=== PATIENT | male | born 1980 | race Caucasian/White ===

== ENCOUNTER 2016-08-04 09:23 | Inpatient (IN) | payer BC, OTHER ==
[~2016-08-04] VITALS: Ht 180.3 cm; Wt 90.7 kg
[2016-08-04 09:24] VITALS: BP 155/93; PULSE 92; RESP 14; TEMP 98.1; O2SAT 98
[2016-08-04] MEDS ORDERED: AMLO5TAB2 PO (09:50)
[2016-08-04] MEDS ORDERED: FAMO1TAB37 PO (09:50)
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
[2016-08-04 10:50] LABS: AUTOMATED NEUTROPHIL # 5.2 TH/MM3 (1.8-7.7); BASOPHIL # 0.1 TH/MM3 (0-0.2); BASOPHIL % 0.8 % (0.0-2.0); EOSINOPHIL # 0.1 TH/MM3 (0-0.4); EOSINOPHIL % 1.9 % (0.0-4.0); HEMATOCRIT 46.4 % (39.0-51.0); HEMO FLAGS DIFF FINAL; LYMPH % 13.6 % (9.0-44.0); MEAN CELL VOLUME 83.3 FL (80.0-100.0); MEAN CORPUSCULAR HEMOGLOBIN 28.6 PG (27.0-34.0); MEAN CORPUSCULAR HGB CONC 34.4 % (32.0-36.0); MONO % 12.7 % (0.0-8.0); PLATELET COUNT 295 TH/MM3 (150-450); RED BLOOD COUNT 5.57 MIL/MM3 (4.50-5.90); RED CELL DISTRIBUTION WIDTH 13.6 % (11.6-17.2); WHITE BLOOD COUNT 7.3 TH/MM3 (4.0-11.0)
[2016-08-04 11:06] LABS: ANION GAP 6 MEQ/L (5-15)
[2016-08-04 11:06] LABS: BLOOD, URINE NEG (NEG); COMMENT (UR) CULT NOT INDICATED; CULTURE IF INDICATED CULT NOT INDICATED; GLUCOSE,URINE NEG (NEG); KETONE, URINE NEG (NEG); NITRITE,URINE NEG (NEG); PH, URINE 6.5 (5.0-8.5); URINE COLOR YELLOW (YELLW/STRAW)
[2016-08-04 11:08] LABS: ALKALINE PHOSPHATASE 99 U/L (45-117); ALT (GPT) 53 U/L (12-78); AST (GOT) 20 U/L (15-37); BICARBONATE 28.3 MEQ/L (21.0-32.0); BLOOD UREA NITROGEN 12 MG/DL (7-18); CHLORIDE 103 MEQ/L (98-107); CREATINE KINASE 145 U/L (39-308); GLOMERULAR FILTRATION RATE 81 ML/MIN (>89); SODIUM (NA) 137 MEQ/L (136-145); TOTAL BILIRUBIN ADULT 1.1 MG/DL (0.2-1.0)
[2016-08-04 11:10] LABS: ACETAMINOPHEN LESS THAN 2.0 MCG/ML (10.0-30.0)
[2016-08-04 11:12] LABS: AMPHETAMINE, URINE NEG (NEG); BARBITURATES, URINE NEG (NEG); COCAINE, URINE NEG (NEG)
--- NOTE | 2016-08-04 11:55 | RADRPT ---
EXAM DATE/TIME: 08/04/2016 10:58 [facility] COMPARISON: No previous studies available for comparison. INDICATIONS : Altered mental status, headache RADIATION DOSE: 40.86 CTDIvol (mGy) MEDICAL HISTORY : Hypertension. SURGICAL HISTORY : None. ENCOUNTER: Initial ACUITY: 4 - 6 days PAIN SCALE: 5/10 LOCATION: cranial TECHNIQUE: Multiple contiguous axial images were obtained of the head. Using automated exposure control and adj ustment of the mA and/or kV according to patient size, radiation dose was kept as low as reasonably a chievable to obtain optimal diagnostic quality images. FINDINGS: CEREBRUM: The ventricles are normal for age. No evidence of midline shift, mass lesion, hemorrhage or acute in farction. No extra-axial fluid collections are seen. POSTERIOR FOSSA: The cerebellum and brainstem are intact. The 4th ventricle is midline. The cerebellopontine angle i s unremarkable. EXTRACRANIAL: The visualized portion of the orbits is intact. SKULL: The calvaria is intact. No evidence of skull fracture. CONCLUSION: Normal examination. Trenton Gaxiola MD on August 04, 2016 at 11:53 Board Certified Radiologist. This report was verified electronically.
[2016-08-04 12:30] VITALS: BP 161/96; PULSE 84; RESP 18; O2SAT 99
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
[2016-08-04] MEDS ORDERED: MAGNESIUM HYDROXIDE SUSP 30 ML CUP PO PRN (18:00)
[2016-08-04] MEDS ORDERED: ACETAMINOPHEN 325 MG TAB PO PRN (18:00)
[2016-08-04 19:00] VITALS: BP 165/108; PULSE 88; RESP 19; TEMP 98.1; O2SAT 96
[2016-08-04] MEDS ORDERED: traZODone HCL 100 MG TAB PO PRN (20:15)
[2016-08-04] MEDS ORDERED: OLANZapine 10 MG TAB PO ONE (20:15)
[2016-08-04] MEDS ORDERED: OLANZapine IM 10 MG VIAL IM ONE (20:15)
[2016-08-04] MEDS ORDERED: LORazepam 2 MG/ML VIAL IM ONE (22:30)
[2016-08-04] MEDS ORDERED: LORazepam 2 MG TAB PO ONE (22:30)
[2016-08-05 06:02] VITALS: BP 133/75; PULSE 78; RESP 18; TEMP 97.5; O2SAT 97
[2016-08-05 07:24] LABS: ANION GAP 8 MEQ/L (5-15); BLOOD UREA NITROGEN 12 MG/DL (7-18); CHLORIDE 100 MEQ/L (98-107); GLOMERULAR FILTRATION RATE 69 ML/MIN (>89); HDL CHOLESTEROL 38.2 MG/DL (40.0-60.0); LDL CHOLESTEROL 124 MG/DL (0-99); POTASSIUM 3.8 MEQ/L (3.5-5.1); SODIUM (NA) 137 MEQ/L (136-145)
[2016-08-05] MEDS ORDERED: REMOVE OLD NICODERM (NICOTINE) PATCH TD SCH (09:00)
[2016-08-05] MEDS ORDERED: NICOTINE 21 MG/24 HR PATCH T-DERMAL SCH (09:00)
[2016-08-05] MEDS ORDERED: clonazePAM 0.5 MG TAB PO PRN (10:30)
[2016-08-05] MEDS: VENLAFAXINE HCL XR 37.5 MG CAP PO SCH (11:32)
[2016-08-05] MEDS: clonazePAM 0.5 MG TAB PO SCH ×2 (11:33→20:31)
--- NOTE | 2016-08-05 12:27 | MH ---
cc: BOBY TRAN MD DATE OF ADMISSION: 08/04/2016 ADMISSION DIAGNOSES 1. Other anxiety disorder, F41.3. 2. Cannabis abuse, F12.10. LEGAL STATUS The patient is capacitated to consent for voluntary psychiatric admission and also for medications. HISTORY OF PRESENT ILLNESS Mr. Mix is a 35-year-old male with no reported past psychiatric history, who presented to the ED with complaints of racing thoughts and feeling like he was going crazy. The patient was evaluated by the psychiatric nurse practitioner who felt that he would benefit from inpatient psychiatric admission as he became somewhat agitated when it was suggested to him that his problems could be managed on an outpatient basis. He did require some medication with Zyprexa and Ativan in the ED for agitation. Reviewing the electronic medical record, I see no prior psychiatric contact within our system. The patient seen and examined. Chart reviewed. Case was discussed with nurse on the inpatient psychiatric unit. On my examination today, the patient reports that he has had trouble with anxiety stretching all the way back to childhood or adolescence. He says "it's never been this bad before." He says that for the last month or two he has been feeling increasingly irritable and feels like this irritability is building up inside. He says that he has occasional panic attacks. He says that he has negative ruminations in his head that play out like a loop. He says that this sensation is constant and is wearing on his mood. He denies any associated compulsions. His sleep is not disturbed. There is no evidence of any mood instability presently, nor does the patient give a history of hypomanic or manic episodes. He denies any audiovisual hallucinations, and I cannot elicit any delusional beliefs. He does not describe any real depressive symptoms per se. This chiefly seems to be an anxiety problem. The remainder of the psychiatric ROS is negative. PAST PSYCHIATRIC HISTORY The patient denies a history of psychiatric diagnosis. He denies a history of inpatient or outpatient psychiatric treatment. He denies a history of suicide attempts. FAMILY HISTORY The patient denies family history of serious mental illness or suicide. The patient does report that his mother smokes cannabis. CHEMICAL DEPENDENCY HISTORY The patient reports that he smokes cannabis on weekends and at parties. He also drinks perhaps three 12 ounce beers daily. He denies a history of DUIs, consequences or withdrawal. SOCIAL HISTORY The patient denies any history of abuse. He says that he is high school educated and subsequently went to technical school. 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 He has been 10 years and has a son and daughter. He denies any or legal history. He is a [employer]. He does keep a 22 rifle and a revolver at home. PAST MEDICAL HISTORY Chart shows a history hypertension, but the patient denies. REVIEW OF SYSTEMS No reported headache, vision or hearing changes, chest pain, shortness of breath, bowel or bladder issues. ALLERGIES No reported allergies. PHYSICAL EXAMINATION VITAL SIGNS: Temperature is 97.5 Fahrenheit, pulse is 78, respirations 18, blood pressure 133/75, pulse oximetry 97% on room air. The physical examination was completed in the emergency room by the ER staff and the patient was medically cleared. On my examination today I find a well-nourished, well-developed male, in no acute physical distress. No abnormal motor movements noted. LABS REVIEWED CBC is unremarkable. CMP is significant only for decreased GFR and mildly elevated total bilirubin. Lipid panel reviewed. Hemoglobin A1c is pending. Toxicology is positive for cannabinoids and alcohol level was undetectable. Urinalysis was bland. Head imaging was read as normal. MENTAL STATUS EXAMINATION The patient is in hospital gown. He is well-groomed. He is awake, alert and oriented x3. No evidence of delirium. No abnormal motor movements noted. Speech is within normal limits for rate, tone and volume. Language and fund of knowledge seem adequate and appropriate for age. Mood is "worn out." Affect is fairly full and reactive. There is definitely an anxious quality to his affect, however. Thought process linear. No loosening of associations. No evident delusions. Denies audiovisual hallucinations. Denies suicidal or homicidal ideation. Insight and judgment are fair. ASSESSMENT/PLAN This is a 35-year-old male with no reported past psychiatric history, who presented to the ED with psychiatric complaints. The patient is presently admitted to the inpatient psychiatric unit after having been screened by the nurse practitioner in the ED. On my examination today, the patient describes intermittent severe irritability and anxiety without associated mood symptoms. I am less suspicious of a primary affective disorder such as of bipolar disorder and much more suspicious of an anxiety disorder with primarily irritable features. 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 I think the patient would do well with treatment focused on his anxiety both pharmacologically on an inpatient basis and psychotherapeutic on discharge. At the patient's specific request, and with his permission, I have discussed the case with his over the phone, and she is in agreement with this plan as well. The patient requires psychiatric admission at this time for stabilization. Admit inpatient. Voluntary status. I will recheck a BMP in the morning to ensure that his GFR improves. I will encourage hydration. I will start the patient for his anxiety on Effexor XR 37.5 mg daily with plans to titrate. I will also initiate Klonopin 0.5 mg twice daily with an additional 0.5 mg twice daily as needed for breakthrough anxiety. I have discussed the risks and benefits of both these medications at length with the patient and also highlighted the risk for dependence on the Klonopin. Trazodone as needed for sleep. Vitals every shift. Counselor to see. Disposition planning. ESTIMATED LENGTH OF STAY: 3-5 days. Boby RUST /11:35 AM /12:05 PM [facility]
[2016-08-05 15:41] LABS: HEMOGLOBIN A1a 1.1 %; HEMOGLOBIN A1b 1.5 %; HEMOGLOBIN Ao 86.2 %; HEMOGLOBIN LA1C 1.8 %; HEMOGLOBIN P3 3.5 %
[2016-08-05 20:12] VITALS: BP 142/81; PULSE 77; RESP 18; TEMP 97.8; O2SAT 99
[2016-08-05] MEDS: ALUMINUM/MAGNESIUM/SIMETH 30 ML CUP PO PRN (20:31)
[2016-08-06 05:56] VITALS: BP 131/77; PULSE 65; RESP 16; TEMP 97.9; O2SAT 98
[2016-08-06 07:39] LABS: BICARBONATE 31.2 MEQ/L (21.0-32.0); POTASSIUM 3.8 MEQ/L (3.5-5.1)
[2016-08-06] MEDS: clonazePAM 0.5 MG TAB PO SCH ×2 (09:49→21:07)
[2016-08-06] MEDS: VENLAFAXINE HCL XR 37.5 MG CAP PO SCH (09:49)
--- NOTE | 2016-08-06 11:30 | HHI.PYPN ---
Subjective Remarks Patient seen and examined with counselor. Chart reviewed. Case discussed with nursing staff. On my examination today, the patient feels somewhat less anxious today. He says "I can think normal thoughts again." No SI or HI voiced. No ongoing psychotic symptoms. Denies side effects from medications. Review of Systems Other Complains of acid reflux; says he takes Pepcid outside of the hospital. No other physical complaints. Objective Alert: Yes [place]: Person (O x 3) Mood: Anxious (somewhat less) Affect: Blunted Memory Intact: Comment (intact on clinical exam) Hallucinations: Other (no AVH) Delusions: No Delusion Type: Other (no delusional material) Suicidal: Ideation (no SI) Homicidal: Ideation (no HI) Insight/Judgement Fair Remarks No abnormal motor movements noted. Thought processes fairly linear. Speech within normal limits for rate, tone and volume. Labs Test 08/06/16 06:01 Sodium Level 140 MEQ/L Potassium Level 3.8 MEQ/L Chloride Level 102 MEQ/L Carbon Dioxide Level 31.2 MEQ/L Anion Gap 7 MEQ/L Blood Urea Nitrogen 13 MG/DL Creatinine 1.01 MG/DL Estimat Glomerular Filtration 84 ML/MIN Rate Random Glucose 88 MG/DL Calcium Level 8.9 MG/DL Labs reviewed. GFR improved. Vitals/IOs Vital Signs Date Time Temp Pulse Resp B/P Pulse Ox O2 Delivery O2 Flow Rate FiO2 08/06/16 05:56 97.9 65 16 131/77 98 08/04/16 12:30 Room Air Assessment & Plan Problem List: (1) Other mixed anxiety disorders ICD Code: F41.3 (2) Cannabis abuse ICD Code: F12.10 Assessment & Plan Titrate Effexor. Continue Klonopin as ordered. Add Pepcid. Continue other medications and care as ordered. Justification for Cont. Inpt. Risk for decompensation Discharge Planning Pending psychiatric stabilization Request HC Surrog/Guard Advoc?: No Boby Leonard MD Aug 06, 2016 11:30
[2016-08-06] MEDS: FAMOTIDINE 20 MG TAB PO SCH ×2 (12:00→21:07)
[2016-08-06] MEDS: ALUMINUM/MAGNESIUM/SIMETH 30 ML CUP PO PRN (12:00)
[2016-08-06 18:54] VITALS: BP 142/91; PULSE 74; RESP 16; TEMP 98.4; O2SAT 99
[2016-08-07 05:44] VITALS: BP 150/76; PULSE 74; RESP 17; TEMP 97.4; O2SAT 96
[2016-08-07] MEDS: FAMOTIDINE 20 MG TAB PO SCH ×2 (09:00→20:27)
[2016-08-07] MEDS: VENLAFAXINE HCL XR 37.5 MG CAP PO SCH (09:00)
[2016-08-07] MEDS: clonazePAM 0.5 MG TAB PO SCH ×2 (09:11→20:27)
--- NOTE | 2016-08-07 12:32 | HHI.PYPN ---
Subjective Remarks Patient seen and examined with counselor. Chart reviewed. Case discussed with nursing staff. On my examination today, patient reports that he feels like his anxiety is improving. He says that he is able to sit out in the day area without having crippling anxiety now. No SI or HI voiced. His sleep was somewhat disrupted. Denies side effects from medications except to say that he thinks his morning dose of Klonopin is a little too strong, although he also notes that he starts to feel more anxious in the mid afternoon before his next dose is due. Review of Systems Other Feels a little tired, which he attributes to his Klonopin. No other physical complaints. Objective Alert: Yes [place]: Person (once again O x 3) Mood: Anxious (lessening) Affect: Blunted Memory Intact: Comment (remains intact) Hallucinations: Other (none) Delusions: No Delusion Type: Other (no delusions) Suicidal: Ideation (no SI) Homicidal: Ideation (no HI) Insight/Judgement Fair Remarks Thought process linear. Labs Labs reviewed. No new labs. Vitals/IOs Vital Signs Date Time Temp Pulse Resp B/P Pulse Ox O2 Delivery O2 Flow Rate FiO2 08/07/16 05:44 97.4 74 17 150/76 96 08/04/16 12:30 Room Air Assessment & Plan Problem List: (1) Other mixed anxiety disorders ICD Code: F41.3 (2) Cannabis abuse ICD Code: F12.10 Assessment & Plan Patient finds the morning dose of Klonopin too sedating but finds that he is also more anxious in the later afternoon. I will therefore divide his morning dose. Now Klonopin 0.25/0.25/0.5mg. Continue Effexor as ordered with plans to titrate. Continue other medications and care as ordered. Transfer to the lower acuity unit when a bed is available. Justification for Cont. Inpt. Risk for decompensation Discharge Planning Pending psychiatric stabilization Request HC Surrog/Guard Advoc?: No Boby Leonard MD Aug 07, 2016 12:32
[2016-08-07] MEDS ORDERED: clonazePAM 0.5 MG TAB PO SCH (17:00)
[2016-08-07 19:30] VITALS: BP 150/96; PULSE 79; RESP 18; TEMP 98; O2SAT 98
[2016-08-07] MEDS: ALUMINUM/MAGNESIUM/SIMETH 30 ML CUP PO PRN (22:07)
[2016-08-08 06:21] VITALS: BP 143/81; PULSE 62; RESP 18; TEMP 97.5; O2SAT 99
[2016-08-08 08:00] VITALS: BP 166/97; PULSE 80; RESP 19; TEMP 97.8; O2SAT 100
[2016-08-08] MEDS: clonazePAM 0.5 MG TAB PO SCH ×3 (09:18→21:12)
[2016-08-08] MEDS: VENLAFAXINE HCL XR 37.5 MG CAP PO SCH (09:18)
[2016-08-08] MEDS: FAMOTIDINE 20 MG TAB PO SCH ×2 (09:18→21:12)
--- NOTE | 2016-08-08 12:58 | HHI.PYPN ---
Subjective Remarks Pt sen and discussed with staff. He reports that he had a "meltdown" this morning in which he was overwhelmed by anxiety and felt as if he couldn't breathe. He is feeling better now after morning medication administration. He reports that anxiety remains high but he is tolerating medications better today and no longer feels sedated. No SI/HI. Objective Alert: Yes [place]: Person (once again O x 3) Mood: Anxious (lessening) Affect: Blunted Memory Intact: Comment (remains intact) Hallucinations: Other (none) Delusions: No Delusion Type: Other (no delusions) Suicidal: Ideation (no SI) Homicidal: Ideation (no HI) Insight/Judgement limited Vitals/IOs Vital Signs Date Time Temp Pulse Resp B/P Pulse Ox O2 Delivery O2 Flow Rate FiO2 08/08/16 08:00 97.8 80 19 166/97 100 08/04/16 12:30 Room Air Assessment & Plan Problem List: (1) Other mixed anxiety disorders ICD Code: F41.3 (2) Cannabis abuse ICD Code: F12.10 Assessment & Plan Continue current tx plan. Estimated LOS: days Justification for Cont. Inpt. impairments in daily functioning Request HC Surrog/Guard Advoc?: Starr Cox MD Aug 08, 2016 12:58
[2016-08-08] MEDS: ALUMINUM/MAGNESIUM/SIMETH 30 ML CUP PO PRN (13:10)
[2016-08-08 19:23] VITALS: BP 136/78; PULSE 66; RESP 17; TEMP 97.9; O2SAT 100
[2016-08-09 06:16] VITALS: BP 158/97; PULSE 65; RESP 18; TEMP 98; O2SAT 97
[2016-08-09] MEDS: FAMOTIDINE 20 MG TAB PO SCH ×2 (08:14→20:51)
[2016-08-09] MEDS: clonazePAM 0.5 MG TAB PO SCH ×3 (08:14→20:51)
[2016-08-09] MEDS: VENLAFAXINE HCL XR 37.5 MG CAP PO SCH (08:15)
--- NOTE | 2016-08-09 13:44 | HHI.PYPN ---
Subjective Remarks Pt seen and discussed with staff. He reports decreased anxiety. He has been pacing less and interacting more on unit. No medication side effects. No SI/HI. He reports long hx of GERD symptoms due to hiatal hernia. He reports that at home he takes higher dose of pepcid (40mg split) and requests adjustment as GERD symptoms not well controlled. Objective Alert: Yes [place]: Person (once again O x 3) Mood: Anxious (lessening) Affect: Blunted Memory Intact: Comment (remains intact) Hallucinations: Other (none) Delusions: No Delusion Type: Other (no delusions) Suicidal: Ideation (no SI) Homicidal: Ideation (no HI) Insight/Judgement fair Vitals/IOs Vital Signs Date Time Temp Pulse Resp B/P Pulse Ox O2 Delivery O2 Flow Rate FiO2 08/09/16 06:16 98.0 65 18 158/97 97 Assessment & Plan Problem List: (1) Other mixed anxiety disorders ICD Code: F41.3 (2) Cannabis abuse ICD Code: F12.10 Assessment & Plan Continue current tx plan. Will titrate pepcid for gerd. Justification for Cont. Inpt. risk of decompensation. impairments in social functionin. Request HC Surrog/Guard Advoc?: No Starr Garvin MD Aug 09, 2016 13:44
[2016-08-09 19:45] VITALS: BP 153/91; PULSE 70; RESP 20; TEMP 98.1; O2SAT 99
[2016-08-10 05:38] VITALS: BP 162/91; PULSE 57; RESP 18; TEMP 97.2
[2016-08-10] MEDS: clonazePAM 0.5 MG TAB PO SCH ×2 (09:00→13:06)
[2016-08-10] MEDS: FAMOTIDINE 20 MG TAB PO SCH (09:07)
[2016-08-10] MEDS: VENLAFAXINE HCL XR 37.5 MG CAP PO SCH (09:07)
[2016-08-10] MEDS ORDERED: CLON.5 PO (10:39)
[2016-08-10] MEDS ORDERED: Venlafaxine Xr PO (10:39)
--- NOTE | 2016-08-10 10:40 | HHI.DS ---
Psychiatry Discharge Summary Inpatient Psychiatric care?: Yes Advance Directive: No Reason Not Provided: Due to Patient Condition Mental Health AdvanceDirective: No Health Care Proxy: No Admission Admission Date Aug 04, 2016 at 17:54 Admission Diagnosis: (1) Other mixed anxiety disorders ICD Code: F41.3 (2) Cannabis abuse ICD Code: F12.10 Brief History Mr. Mix is a 35-year-old male with no reported past psychiatric history, who presented to the ED with complaints of racing thoughts and feeling like he was going crazy. The patient was evaluated by the psychiatric nurse practitioner who felt that he would benefit from inpatient psychiatric admission as he became somewhat agitated when it was suggested to him that his problems could be managed on an outpatient basis. He did require some medication with Zyprexa and Ativan in the ED for agitation. Reviewing the electronic medical record, I see no prior psychiatric contact within our system. The patient seen and examined. Chart reviewed. Case was discussed with nurse on the inpatient psychiatric unit. On my examination today, the patient reports that he has had trouble with anxiety stretching all the way back to childhood or adolescence. He says "it's never been this bad before." He says that for the last month or two he has been feeling increasingly irritable and feels like this irritability is building up inside. He says that he has occasional panic attacks. He says that he has negative ruminations in his head that play out like a loop. He says that this sensation is constant and is wearing on his mood. He denies any associated compulsions. His sleep is not disturbed. There is no evidence of any mood instability presently, nor does the patient give a history of hypomanic or manic episodes. He denies any audiovisual hallucinations, and I cannot elicit any delusional beliefs. He does not describe any real depressive symptoms per se. This chiefly seems to be an anxiety problem. The remainder of the psychiatric ROS is negative. Tobacco Use In Past 30 Days: 4 or Less Cigarettes/Day Alcohol Use: 4 or More Times Per Week Hospital Course Patient was admitted to a locked, inpatient psychiatric unit. Appropriate precautions were in place throughout patient's hospital stay. Patient was seen and examined daily on the unit by psychiatry and also visited by counselor. Medications were adjusted. Patient tolerated medications well without side effects. There was no evidence of any suicidal or homicidal behavior on the inpatient unit. Patient had improvement in his presenting psychiatric symptomatology during the course of his hospital stay. Patient remained in fairly good behavioral control and was medication compliant. Reviewing the chart, it appears the patient has been sleeping and eating well. On day of discharge: Patient seen and examined. Case discussed with nursing staff. Chart reviewed. No behavioral issues noted. On my examination today, patient feels like he is on the right psychotropic medication regimen. He feels like the medications are working well. His anxiety is significantly less and he tells me. Mood is stable. He denies any suicidal or homicidal ideation. He denies any audiovisual hallucinations. He denies side effects from medications. He has no physical complaints. Weighing the acute, chronic, and protective factors and based on the available evidence, I group sales coordinator to a reasonable degree of medical certainty that the patient is at low imminent risk of harm to self or others from a mental illness as defined under the [place] act and his level of function is adequate for outpatient care. The patient has maximized benefit from this inpatient psychiatric hospital stay. He will be discharged today in stable condition with psychiatric follow-up as arranged by counselor. Patient is also to follow-up with primary care. I have counseled the patient to abstain from substances of abuse. I have further counseled the patient regarding warning signs for need to return to the psychiatric emergency room as part of a general safety plan. Results Blood Pressure 162 / 91 Vital Signs Date Time Temp Pulse Resp B/P Pulse Ox O2 Delivery O2 Flow Rate FiO2 08/10/16 05:38 97.2 57 18 162/91 08/09/16 19:45 99 Item Value Date Time Olanzapine 10 mg 08/04/162014 (ZyPREXA) NOW ONCE/PO 08/04/162008 White Blood Count 7.3 TH/MM3 08/04/16 1035 Hemoglobin 15.9 GM/DL 08/04/16 1035 Platelet Count 295 TH/MM3 08/04/16 1035 Sodium Level 140 MEQ/L 08/06/16 0601 Potassium Level 3.8 MEQ/L 08/06/16 0601 Chloride Level 102 MEQ/L 08/06/16 0601 Carbon Dioxide Level 31.2 MEQ/L 08/06/16 0601 Blood Urea Nitrogen 13 MG/DL 08/06/16 0601 Creatinine 1.01 MG/DL 08/06/16 0601 Aspartate Amino Transf (AST/SGOT) 20 U/L 08/04/16 1035 Alanine Aminotransferase (ALT/SGPT) 53 U/L 08/04/16 1035 Alkaline Phosphatase 99 U/L 08/04/16 1035 Urine Cannabinoids Screen POS H 08/04/16 1050 Ethyl Alcohol Level LESS THAN 3 MG/DL 08/04/16 1035 Summary of Procedures None done Imaging Last Impressions Head CT 08/04/16 0000 Signed Impressions: Service Date/Time: Thursday, August 04, 2016 10:58 - CONCLUSION: Normal examination. Trenton Gaxiola MD Pending results at discharge: No Medications # of Antipsychotic meds at D/C: 0 Approp Antipsych med options 1 - Minimum of three failed multiple trials of monotherapy. 2 - Documented plan to taper to monotherapy due to previous use of multiple meds OR cross-taper in progress at D/C. 3 - Documentation of augmentation of Clozapine. 4 - Justification other than those listed in allowable values 1-3, document here : Discharge Discharge Date: Aug 10, 2016 Discharge Diagnosis: (1) Other mixed anxiety disorders Diagnosis: Principal (stabilized) ICD Code: F41.3 (2) Cannabis abuse Diagnosis: Secondary (counseled to quit) ICD Code: F12.10 GAF on discharge is 60 Mental Status Exam at Disch Patient is casually dressed. He is well groomed. He is awake and alert and oriented 3. No abnormal motor movements noted. Speech is within normal limits for rate, tone and volume. Language and fund of knowledge seemed adequate appropriate for age. Mood is improved versus admission and affect is full and reactive. Thought process linear. No loosening of associations. No evident delusions. Denies audiovisual hallucinations. Denies suicidal or homicidal ideation. Insight and judgment are fair. Pt Condition on Discharge: Stable Discharge Disposition: Discharge Home Discharge Instructions Diet Instructions: As Tolerated, No Restrictions Activities you can perform: Weight Bearing as Yash Scheduled Appointment: as per counselor's notes New Medications: Clonazepam (Klonopin) 0.5 Mg Tab 0.5 MG PO DIRECTED 0.25mg PO qAM, 0.25mg PO qNoon, 0.5mg PO qHS. Mental Health Days 15 Ref 1 TAB ([Venlafaxine Xr]) 37.5 MG CAPER 75 MG PO DAILY Mental Health Days 15 Ref 1 CAP.SR Continued Medications: Amlodipine (Amlodipine) 5 Mg Tab Unknown Dose PO DAILY Blood Pressure Management #30 Ref 0 TAB Famotidine (Pepcid) 20 Mg Tab 10 MG PO BID #60 Ref 0 TAB Discharge Time <= 30 minutes Discharge/Advance Care Plan Health Problems: (1) Other mixed anxiety disorders (2) Cannabis abuse Goals to promote your health * To prevent worsening of your condition and complications * To maintain your health at the optimal level Directions to meet your goals Take your medications as prescribed Follow your dietary instruction Follow activity as directed Keep your appointments as scheduled Take your immunizations and boosters as scheduled If your symptoms worsen call your PCP, if no PCP go to Urgent Care Center or Emergency Room For 08/02 questions related to your inpatient stay or results of tests pending at discharge, please contact Dr. Boby Leonard at Smoking is Dangerous to Your Health. Avoid second hand smoking Boby Leonard MD Aug 10, 2016 10:40
== END 2016-08-10 13:45 | disposition home or self-care (01) | DRG 880 ==
LOC: NEPA 09:23 → NEDA 17:54 → H270 18:00
PROVIDERS: ADMIT Psychiatry & Neurology Psychiatry; ATTEND Psychiatry & Neurology Psychiatry
DX: F41.3 Other mixed anxiety disorders (principal); I10 Essential (primary) hypertension; F41.0 Panic disorder [episodic paroxysmal anxiety]; F12.10 Cannabis abuse, uncomplicated; Z72.0 Tobacco use
CPT/HCPCS: 70450; 80048; 80053; 80061; 80307; 80320; 80329; 81001; 82550; 83036; 85025; G0480